=== PATIENT | female | born 1995 | race American Indian/Alaskan Native ===

== ENCOUNTER 2017-11-24 17:07 | Emergency (ER) | payer MEDICAID ==
[2017-11-24 18:00] LABS: Bilirubin,Urine NEG (Negative); Blood,Urine NEG (Negative); Color,Urine Yellow (Yellow); Mucus,Urine 1+ /HPF; Protein,Urine <15 mg/dL mg/dL (Negative); Urobilinogen,Urine < 2.0 mg/dL (<2.0)
[2017-11-24 19:12] LABS: Basophils % (Auto) 0.5 % (0.0-1.8); Eosinophils # (Auto) 0.4 K/mm3 (0.0-0.4); Eosinophils % (Auto) 3.5 % (0.0-4.3); Hemoglobin 11.1 gm/dl (10.1-14.3); Lymphocytes % (Auto) 20.4 % (13.4-35.0); Mean Corpuscular HGB Conc 33 % (30-34); Mean Corpuscular Hemoglobin 27 pg (28-32); Mean Corpuscular Volume 83 fl (79-97); Platelet Count 205 K/mm3 (140-440); Red Blood Count 4.11 M/mm3 (3.65-5.03); Red Cell Distribution Width 17.2 % (13.2-15.2)
--- NOTE | 2017-11-24 22:29 | Ultrasound Report ---
FINAL REPORT PROCEDURE: US OB TRANSVAGINAL TECHNIQUE: Real-time transvaginal sonography of the uterus, placenta, amniotic fluid, adnexa, and fetus was performed with image documentation. Measurements were obtained to determine age/size. M-mode Doppler was used to document heartbeat. CPT 66620 HISTORY: +hcg abd pain COMPARISON: No prior studies are available for comparison. FINDINGS: CRL: 58.3mm, which corresponds to a gestational age of: 12weeks, 2 days. Yolk Sac: Normal. Embryonic Cardiac Activity: 169 beats per minute Gestational Sac: Normal. Right Ovary: Normal. Left Ovary: Normal. Estimated delivery date: 06/06/2018 Comment: Complete anatomic survey at 18-20 weeks suggested. IMPRESSION: 1. Single living intrauterine gestation at approximately 12 weeks and 2 days 2. EDC by US 06/06/2018.
--- NOTE | 2017-11-24 22:31 | Ultrasound Report ---
FINAL REPORT PROCEDURE: US OB < = 14 WEEKS FETUS TECHNIQUE: Real-time transabdominal sonography of the uterus, placenta, amniotic fluid, adnexa, and fetus was performed with image documentation. Measurements were obtained to determine age/size. M-mode Doppler was used to document heartbeat. CPT 98932 HISTORY: +hcg abd pain COMPARISON: No prior studies are available for comparison. FINDINGS: CRL: 58.3 mm, which corresponds to a gestational age of: 12 weeks, 2 days. Yolk Sac: Normal. Embryonic Cardiac Activity: Normal. Gestational Sac: Normal. Amniotic fluid: Normal. Cervix: Normal. Right Ovary: Normal. Left Ovary: Normal. Estimated delivery date: 06/06/2018 Uterus and adnexa: Normal. IMPRESSION: Single live intrauterine gestation at approximately 12 weeks and 2 days. EDC by US 06/06/2018
[2017-11-24] MEDS ORDERED: XYLOCAINE 1% MPF 5 mL INFILTRATI ONE (23:29)
[2017-11-24] MEDS ORDERED: ZITHROMAX PO ONE (23:29)
[2017-11-24] MEDS ORDERED: ROCEPHIN IM ONE (23:29)
--- NOTE | 2017-11-24 23:29 | Emergency Department Report ---
ED HPI - General Chief complaint: Abdominal Pain Stated complaint: /ABD PAIN Time Seen by Provider: 11/24/17 23:03 Source: patient Mode of arrival: Ambulatory Limitations: No Limitations - History of Present Illness Initial comments: This is a 22-year-old female nontoxic, well nourished in appearance, no acute signs of distress presents to the ED with c/o of vaginal bleeding, pelvic pain, and dysuria x3 days. Patient stated she is 2 months . Patient stated yesterday she noticed some spotting this morning x3 occasions and primarily only when she wipes after the restroom. Patient denies any upper abdominal. Patient describes pelvic pain as cramping but denies any radiation of pain. Patient stated she is concerned about STD and wants and medical treatment in the ED. Patient denies any nausea, vomiting, chest pain, shortness of breathe, fever, chills, headache, stiff neck, numbness, tingling. Patient denies any other urinary symptoms. Patient denies any allergies or PMH. MD Complaint: vaginal discharge, other (pelvic pain, dysuria) -: days(s) (3) Location: pelvis Radiation: none Severity: mild Severity scale (0 -10): 3 Quality: cramping, aching, burning Consistency: constant Improves with: none Worsens with: none Associated symptoms: vaginal bleeding, vaginal discharge, dysuria. denies: nausea/vomiting, abdominal pain, headache, vision changes, malaise, dysparuenia , rash, seizure, shortness of breath, syncope, weakness Vaginal bleeding: light :: Yes Pre- care: none - Related Data Previous Rx's Medication Instructions Recorded Last Taken Type Nitrofurantoin Jasper/M-Cryst 100 mg PO Q12HR #14 capsule 11/24/17 Unknown Rx [Macrobid CAP] 21/Iron Fu/Folic Acid 1 each PO DAILY #30 tablet 11/24/17 Unknown Rx [ Complete Caplet] Allergies Allergy/AdvReac Type Severity Reaction Status Date / Time No Known Allergies Allergy Unverified 11/24/17 17:12 ED Review of Systems ROS: Stated complaint: /ABD PAIN Other details as noted in HPI Constitutional: denies: chills, fever Eyes: denies: eye pain, eye discharge, vision change ENT: denies: ear pain, throat pain Respiratory: denies: cough, shortness of breath, wheezing Cardiovascular: denies: chest pain, palpitations Endocrine: no symptoms reported Gastrointestinal: denies: abdominal pain, nausea, diarrhea Genitourinary: dysuria, discharge, abnormal menses. denies: urgency, frequency , hematuria Musculoskeletal: denies: back pain, joint swelling, arthralgia Skin: denies: rash, lesions Neurological: denies: headache, weakness, paresthesias Psychiatric: denies: anxiety, depression Hematological/Lymphatic: denies: easy bleeding, easy bruising ED Past Medical Hx - Past Medical History Previous Medical History?: No - Surgical History Past Surgical History?: No - Social History Smoking Status: Never Smoker Substance Use Type: None - Medications Home Medications: Home Medications Medication Instructions Recorded Confirmed Last Taken Type Nitrofurantoin Jasper/M-Cryst 100 mg PO Q12HR #14 capsule 11/24/17 Unknown Rx [Macrobid CAP] 21/Iron Fu/Folic Acid 1 each PO DAILY #30 tablet 11/24/17 Unknown Rx [ Complete Caplet] ED Physical Exam - General Limitations: No Limitations General appearance: alert, in no apparent distress - Head Head exam: Present: atraumatic, normocephalic - Eye Eye exam: Present: normal appearance Pupils: Present: normal accommodation - ENT ENT exam: Present: normal exam, mucous membranes moist - Neck Neck exam: Present: normal inspection, full ROM. Absent: tenderness, meningismus, lymphadenopathy - Respiratory Respiratory exam: Present: normal lung sounds bilaterally. Absent: respiratory distress, wheezes, rales, rhonchi, stridor, chest wall tenderness, accessory muscle use, decreased breath sounds, prolonged expiratory - Cardiovascular Cardiovascular Exam: Present: regular rate, normal rhythm, normal heart sounds. Absent: irregular rhythm, systolic murmur, diastolic murmur, rubs, gallop - GI/Abdominal GI/Abdominal exam: Present: soft, normal bowel sounds. Absent: distended, tenderness, guarding, rebound, rigid, diminished bowel sounds - Expanded GI/Abdominal Exam Expanded GI/Abdominal exam: Absent: psoas sign, obturator sign, heel tap sign, Rowe's sign, Rovsing's sign, tenderness at Mcburney's Point, ascites - Rectal Rectal exam: Present: deferred - External exam: Present: normal external exam, other (chaperoned Emilia briquetting machine operator present during exam). Absent: erythema, swelling, lesions, lacerations, ecchymosis, bleeding Speculum exam: Present: cervical discharge, other (OS closed. chaperoned Emilia briquetting machine operator present during exam). Absent: erythema, vaginal discharge, vaginal bleeding, foreign body, tissue, laceration Bi-manual exam: Present: normal bi-manual exam, other (chaperoned Emilia briquetting machine operator present during exam). Absent: cervical motion tendernes, adnexal tenderness, uterine enlargement, uterine tenderness - Extremities Exam Extremities exam: Present: normal inspection, full ROM, normal capillary refill. Absent: tenderness - Back Exam Back exam: Present: normal inspection, full ROM. Absent: tenderness, CVA tenderness (R), CVA tenderness (L), muscle spasm, paraspinal tenderness, vertebral tenderness, rash noted - Neurological Exam Neurological exam: Present: alert, oriented X3, normal gait - Psychiatric Psychiatric exam: Present: normal affect, normal mood - Skin Skin exam: Present: warm, dry, intact, normal color. Absent: rash ED Course Vital Signs 11/24/17 17:12 Temperature 97.9 F Pulse Rate 96 H Respiratory 18 Rate Blood Pressure 127/61 O2 Sat by Pulse 100 Oximetry - Reevaluation(s) Reevaluation #1: 11/24/17 23:31 Patient is speaking in full sentences with no signs of distress noted. ED Medical Decision Making - Lab Data Result diagrams: 11/24/17 18:33 - Medical Decision Making This is a 22-year-old female presents with threatened miscarriage and UTI and Trichomonas. Patient is stable and was examined by me. Normal abdominal exam. US OB obtained and dictated by the radiologist with normal single IUP. Ua obtained. Quantative serum test obtained. Patient notified of the US report with no questions noted by the patient. RH factor positive. Labs within normal limits. Patient was referred to Follow-up with a PROFESSIONAL SERVICES MANAGER in 3-5 days or if symptoms worsen and continue return to emergency room as soon as possible. Wet prep obtained. G/C pending. Patient is not treated with Flagyl due to being 1st trimester. She was instgructed to go to OBGYN for this. Patient received 1G rocephine and 1G azithromycin in the ED. Patient was instructed to return in 3-5 days for G/C results. At time of discharge, the patient does not seem toxic or ill in appearance. No acute signs of distress noted. Patient agrees to discharge treatment plan of care. No further questions noted by the patient. Critical care attestation.: If time is entered above; I have spent that time in minutes in the direct care of this critically ill patient, excluding procedure time. ED Disposition Clinical Impression: Threatened miscarriage, Possible exposure to STD, Trichomonas vaginitis UTI (urinary tract infection) Qualifiers: Urinary tract infection type: site unspecified Hematuria presence: with hematuria Qualified Code(s): N39.0 - Urinary tract infection, site not specified Disposition: - TO HOME OR SELFCARE Is pt being admited?: No Does the pt Need Aspirin: No Condition: Stable Instructions: Threatened Miscarriage (ED), Safe Sex (ED), Trichomoniasis (ED), Urinary Tract Infection in Women (ED) Additional Instructions: Follow-up with a PROFESSIONAL SERVICES MANAGER doctor in 3-5 days or if symptoms worsen and continue return to emergency room as soon as possible. Return in 3-5 days for gonorrhea and chlamydia results. Do not consume any alcohol while taking antibiotics. Prescriptions: Nitrofurantoin Jasper/M-Cryst [Macrobid CAP] 100 mg PO Q12HR #14 capsule 21/Iron Fu/Folic Acid [ Complete Caplet] 1 each PO DAILY #30 tablet Referrals: PRIMARY CARE, [Referring] - 3-5 Days LJ MULLER MD [Staff Physician] - 3-5 Days [facility] [Provider Group] - 3-5 Days Forms: Work/School Release Form(ED)
[2017-11-25 02:00] VITALS: BP 124/60
== END 2017-11-25 00:40 | disposition home or self-care (01) ==
LOC: ED 17:07
DX: O20.0 Threatened abortion (principal); O98.311 Other infections with a predominantly sexual mode of transmission complicating pregnancy, first trimester; A59.01 Trichomonal vulvovaginitis; O23.41 Unspecified infection of urinary tract in pregnancy, first trimester; Z3A.12 12 weeks gestation of pregnancy
CPT/HCPCS: 36415; 76801; 76817; 81001; 84702; 85025; 86850; 86900; 86901; 87210; 87591; 96372; 99284; J0696